=== PATIENT | female | born 1945 | race Caucasian/White ===

== ENCOUNTER 2021-10-07 18:05 | Emergency (ER) | payer OTHER, MEDICAID ==
[~2021-10-07] VITALS: Ht 153.7 cm; Wt 75.8 kg
[2021-10-07 18:25] VITALS: BP 154/89
--- NOTE | 2021-10-07 19:31 | NUR ---
PT AMBUALTED TO BED 09
--- NOTE | 2021-10-07 19:45 | NUR ---
RECEIVED IN BED 9 WITH C/O LEFT LOWER BACK PAIN RADIATING TO LEFT LEG X 3 DAYS.
[2021-10-07] MEDS ORDERED: MORPHINE SULFATE 4 MG/ML SYR IM ONE (20:45)
[2021-10-07] MEDS ORDERED: ACET-8386 PO (21:32)
[2021-10-07] MEDS ORDERED: IBUP-2213 PO (21:32)
[2021-10-07 21:45] VITALS: BP 154/89
--- NOTE | 2021-10-07 21:45 | NUR ---
Patient discharged with v/s stable. Written and verbal after care instructions given and explained. Patient alert, oriented and verbalized understanding of instructions. Ambulatory with steady gait. All questions addressed prior to discharge. ID band removed. Patient advised to follow up with PMD. Rx of hydrocodone, ibuprofen given. Patient educated on indication of medication including possible reaction and side effects. Opportunity to ask questions provided and answered.
== END 2021-10-07 21:45 | disposition home or self-care (01) ==
LOC: MED 18:05
DX: M54.50 Low back pain, unspecified (principal); Z88.2 Allergy status to sulfonamides; Z88.1 Allergy status to other antibiotic agents
CPT/HCPCS: 72100; 81002; 96372; 99283; J2270